=== PATIENT | male | born 1955 | race Hispanic/Latino ===

== ENCOUNTER 2019-01-28 07:54 | Outpatient (CLI) | payer BC ==
[2019-01-28 08:47] LABS: BUN/Creatinine Ratio 10; Blood Urea Nitrogen 12 mg/dL (9-20); Calcium 9.1 mg/dL (8.4-10.2); Hemolysis Index 9
--- NOTE | 2019-01-28 11:38 | Cat Scan Report ---
CTA CHEST: HISTORY: Ascending aorta dilatation, aortic aneurysm. COMPARISON: No relevant comparisons at this facility. TECHNIQUE: Helical CT in 1.25mm intervals following IV contrast. Sagittal and coronal reformatted images. Rotational MIP images. FINDINGS: Contrast bolus is satisfactory. Thyroid gland: Normal. Tracheobronchial tree: Normal. Esophagus: Normal. Heart: Heart size is borderline. Previous CABG changes are suspected. Pericardium: Normal. Mediastinum: The aorta is widely patent with no evidence for stenosis, dissection or significant atherosclerotic change. There is mild to moderate dilatation of the ascending aorta measuring a maximum of 4.5 cm in diameter. The descending thoracic aorta measures 3.0 cm at the same level. The aortic arch measures 3.0 cm in diameter as well. No evidence for mediastinal mass or adenopathy. The central pulmonary arteries are unremarkable. Lung Gipson: Normal. Pleural Spaces: Normal. Musculoskeletal: Intact. Mild thoracic spondylosis is noted. IMPRESSION: The ascending aorta measures 4.5 cm in diameter.
--- NOTE | 2019-01-28 23:24 | Treadmill Report ---
TREADMILL STRESS TEST The patient exercised Beka protocol for 7 minutes 45 seconds. The patient achieved maximum predicted heart rate of 83% max predicted heart rate, which is 127 beats per minute. Baseline heart rate is 55 and baseline blood pressure 133/83. Baseline EKG, sinus rhythm, incomplete right bundle branch block. The patient's peak blood pressure is 158/89. There are no EKG changes suggestive of ischemia, stopped secondary to shortness of breath. SUMMARY: Negative treadmill EKG, but achieved only 83% maximum predicted heart rate, essentially may be mildly compromised, no EKG changes suggestive of ischemia, fair exercise capacity, no exaggerated BP response to exercise. IMAGING: Pending. JOB# [id number] DANAE/SHWETHA
--- NOTE | 2019-01-28 23:46 | Treadmill Report ---
NUCLEAR PERFUSION STUDY REASON FOR STUDY: Shortness of breath. IMAGING PROTOCOL: The patient received 10 mCi of Technetium 99m Tetrofosmin for resting image and 28 mCi of Technetium 99m Tetrofosmin for stress imaging. The imaging for the whole procedure was completed 30-90 minutes following the initial injection of Technetium 99m Tetrofosmin. The SPECT imaging in the 180 degree arc was performed in the right anterior oblique projection. Computerized reconstruction of the images was performed for analysis. IMAGING RESULTS: Normal cavity size from stress to rest. Normal distribution of radionuclide in the anterior, inferior, septal, lateral, but there is a small area of moderate intensity defect in the inferoapical region seen on stress compared to rest. Gated SPECT, EF of 63% with no wall motion abnormality. The patient exercised on Beka protocol for 7 minutes 30 seconds, had no EKG changes suggestive of ischemia. SUMMARY: 1. Negative treadmill EKG, but essentially may be mildly compromised as the patient only achieved 83% maximum predicted heart rate. 2. No exaggerated BP response to exercise. 3. Fair exercise capacity. 4. The patient has a small area of moderate intensity ischemia in the inferoapical region with no ischemia noted in the anterior, inferior, septal, and lateral regions with gated SPECT EF 62%. We will clinically correlate. JOB# [id number] DANAE/SHWETHA
== END 2019-01-28 07:55 | disposition home or self-care (01) ==
LOC: ECHO 07:54
PROVIDERS: ATTEND Internal Medicine
DX: I35.1 Nonrheumatic aortic (valve) insufficiency (principal); I77.810 Thoracic aortic ectasia; I25.810 Atherosclerosis of coronary artery bypass graft(s) without angina pectoris; R07.89 Other chest pain; E78.2 Mixed hyperlipidemia; I10 Essential (primary) hypertension
CPT/HCPCS: 36415; 71275; 78452; 80048; 93017; 93306; A9502; Q9967

== ENCOUNTER 2019-05-06 07:42 | Outpatient (CLI) | payer BC ==
[2019-05-06 08:03] LABS: Hematocrit 45.3 % (35.5-45.6); Mean Corpuscular HGB Conc 35 % (32-34); Mean Corpuscular Volume 93 fl (84-94); Platelet Count 170 K/mm3 (140-440); Red Blood Count 4.89 M/mm3 (3.65-5.03)
[2019-05-06 08:19] LABS: Alanine Aminotransferase 19 units/L (7-56); Albumin 4.4 g/dL (3.9-5); BUN/Creatinine Ratio 11; Blood Urea Nitrogen 13 mg/dL (9-20); Chol/HDL Ratio 3.77 %; HDL Cholesterol 36 mg/dL (40-59); Hemolysis Index 23; LDL Cholesterol,Direct 88 mg/dL (50-130)
== END 2019-05-06 07:43 | disposition home or self-care (01) ==
LOC: LAB 07:42
PROVIDERS: ATTEND Internal Medicine
DX: E78.2 Mixed hyperlipidemia (principal); I25.10 Atherosclerotic heart disease of native coronary artery without angina pectoris
CPT/HCPCS: 36415; 80053; 80061; 85027

== ENCOUNTER → 2019-06-13 | Outpatient (CLI) | payer BC | END | disposition home or self-care (01) | LOC: SLR 11:00 | PROVIDERS: ATTEND Internal Medicine | DX: G47.33 Obstructive sleep apnea (adult) (pediatric) (principal); R06.83 Snoring | CPT/HCPCS: 95810 ==